=== PATIENT | male | born 1955 | race Caucasian/White ===

== ENCOUNTER → 2020-10-29 13:39 | Outpatient (CLI) | payer MEDICARE, SELFPAY ==
--- NOTE | 2020-10-29 13:43 | DI.RAD.S_ITS ---
PROCEDURE: XR FOOT LT MIN 3V INDICATIONS: l foot pain TECHNIQUE: 4 views of the foot were acquired. COMPARISON: None. FINDINGS: There are no fractures or dislocation of the foot. There is soft tissue swelling adjacent to the lateral malleolus of the ankle. On the frontal view of the foot there is a small calcific fragment. No tibiotalar joint effusion. IMPRESSION: Likely nondisplaced avulsion fracture of the distal aspect of the lateral malleolus on limits of this foot series. There is adjacent soft tissue swelling. No acute fracture or dislocation of the foot. Dictated by: Nino Whipple D.O. on 10/29/2020 at 14:02 Approved by: Nino Whipple D.O. on 10/29/2020 at 14:04
== END ==
PROVIDERS: Referring Provider Physician Assistant; Visit Provider Physician Assistant
DX: M79.672 Pain in left foot (principal); M79.89 Other specified soft tissue disorders
CPT/HCPCS: 73630

== ENCOUNTER → 2022-01-11 10:37 | Outpatient (CLI) | payer MEDICARE, SELFPAY ==
--- NOTE | 2022-01-11 | DI.US.S_ITS ---
PROCEDURE: US ABD AORTA ANEURYSM SCREEN INDICATIONS: SCREEN TECHNIQUE: Real time scanning was performed of the aorta and iliac arteries, with image documentation. COMPARISON: None. FINDINGS: Aorta: Proximal aortic diameter measures 2.5 cm. Mid-aorta measures 1.6 cm. Distal aortic diameter is 1.7 cm. Iliac arteries: Right common iliac artery measures 0.7 cm. Left common iliac artery measures 0 point cm. IMPRESSION: No sonographic evidence of aneurysmal dilatation. Consider 5 year follow-up as clinically warranted. Dictated by: Joseph Kumar M.D. on 01/11/2022 at 13:14 Approved by: Joseph Kumar M.D. on 01/11/2022 at 13:22
== END ==
PROVIDERS: PCP Internal Medicine; Referring Provider Internal Medicine; Visit Provider Internal Medicine
DX: Z13.6 Encounter for screening for cardiovascular disorders (principal)
CPT/HCPCS: 76706

== ENCOUNTER → 2022-04-13 13:52 | Outpatient (CLI) | payer MEDICARE, SELFPAY ==
--- NOTE | 2022-04-13 | DI.MRI.S_ITS ---
PROCEDURE: MR KNEE RT WO CON INDICATIONS: Pain in right knee TECHNIQUE: Noncontrast sagittal PD fast spin echo and T2 fast spin echo with fat saturation, sagittal 3-D FLASH with fat saturation; coronal T1 spin echo and PD fast spin echo with fat saturation, and axial PD fast spin echo with fat saturation through the knee. COMPARISON: None. FINDINGS: Image quality: Excellent. Anterior Cruciate Ligament: There is complete tearing of the anterior cruciate ligament, which is likely chronic.. Posterior Cruciate Ligament: Intact. Medial Collateral Ligament: Intact. Lateral Collateral Ligament: Intact. Medial Meniscus: There is complex degenerative tearing and maceration of the medial meniscus. Lateral Meniscus: Linear horizontal hyperintense signal is seen in the body of the lateral meniscus that may extend to the free edge margin. Medial and Lateral Tendons: The semimembranosus tendon insertions and meniscocapsular junction appear intact. Visualized portions of the pes anserinus tendons appear normal. No abnormal bursal fluid. The long and short heads of the biceps femoris tendon appear intact. The popliteus tendon demonstrates insertional tendinosis. No signs of posterolateral corner injury. Iliotibial band appears normal. Anterior Structures: The quadriceps and patellar tendons appear intact. Small nonedematous enthesophyte at the distal quadriceps insertion. No patellar subluxation. No femoral trochlear dysplasia or ventral trochlear prominence. No edema in the infrapatellar fat pad. Bones: No acute trabecular bone injury or fracture. Medial Femorotibial Cartilage: Full-thickness cartilage loss is seen throughout the weight-bearing portion of the medial femorotibial compartment with subchondral edema, subchondral cystic changes, and marginal osteophyte formation. Lateral Femorotibial Cartilage: Mild surface irregularity is seen in the central weight-bearing portion of the lateral femoral condyle and lateral tibial plateau. Small marginal osteophytes are present. Patellofemoral Cartilage: Partial-thickness cartilage irregularity is seen at the medial patellar facet. Soft Tissues: A small joint effusion is present. Small medial popliteal cyst. The musculature surrounding the knee is normal in bulk. IMPRESSION: 1. Complex degenerative tearing and maceration involving the body and posterior horn of the medial meniscus with only a small amount of residual meniscal tissue. 2. Suspected horizontal tearing of the body of the lateral meniscus extending to the free edge margin. 3. Full-thickness cartilage loss throughout the weight-bearing portion of the medial femorotibial compartment with subchondral edema and subchondral cystic changes. 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 4. Small joint effusion. Small medial popliteal cyst. Dictated by: Woody Overton M.D. on 04/13/2022 at 16:11 Approved by: Woody Overton M.D. on 04/13/2022 at 16:19
== END ==
PROVIDERS: PCP Internal Medicine; Referring Provider Internal Medicine; Visit Provider Student in an Organized Health Care Education/Training Program
DX: S83.231A Complex tear of medial meniscus, current injury, right knee, initial encounter (principal); M94.261 Chondromalacia, right knee; M25.461 Effusion, right knee; M71.21 Synovial cyst of popliteal space [Baker], right knee; M25.561 Pain in right knee
CPT/HCPCS: 73721

== ENCOUNTER 2022-12-09 22:09 | Emergency (ER) | payer MEDICARE, SELFPAY ==
[2022-12-09 22:13] VITALS: BP 176/84; PULSE 89; RESP 16; TEMP 37; O2SAT 96; BMI 25.0
[2022-12-09] MEDS: TET,DIPH,PERTUSS(ACELL),VAC/PF 0.5 ML SYRINGE IM (22:57)
--- NOTE | 2022-12-09 23:20 | ED.SKABFB ---
HPI - Skin/Abscess/Foreign Bdy General Chief complaint: Skin/Abscess/Foreign Body Stated complaint: left hand/thumb cut Time Seen by Provider: 12/09/22 22:51 Source: patient Mode of arrival: Ambulatory History of Present Illness HPI narrative: Patient is a 67-year-old male who is here for evaluation of a cut to his left thumb. He states he was sharpening a knife when he cut his thumb. He is in need of a tetanus shot. He states that it goes down next to his thumbnail but he does not injuries nail. He covered with a bandage and came to the emergency department. Related Data Home Medications Medication Instructions Recorded Confirmed No Known Home Medications 10/29/20 08/07/22 Allergies Allergy/AdvReac Type Severity Reaction Status Date / Time No Known Drug Allergies Allergy Verified 12/09/22 22:19 Review of Systems Integumentary/Breasts Skin/Breast: Reports system reviewed and no additional complaints, except as documented Neurologic Neurologic: Reports system reviewed and no additional complaints, except as documented Patient History Social History Smoking Status: Never smoker Smoking Status: Never smoker Exam Initial Vital Signs Initial Vital Signs: Vital Signs Temperature 98.6 F 12/09/22 22:13 Pulse Rate 89 12/09/22 22:13 Respiratory Rate 16 12/09/22 22:13 Blood Pressure 176/84 H 12/09/22 22:13 Pulse Oximetry 96 12/09/22 22:13 Oxygen Delivery Method Room Air 12/09/22 22:13 Skin Other: Total of 1 cm laceration to the tip of the left thumb that goes down along the radial aspect of the thumb nail. It does not involve the thumbnail. Neuro Sensory Exam: no sensory deficits noted Extrem Other: No injury to the IP joint of left thumb. Procedures Laceration Repair Laceration 1: Site: other (Thumb) Side (If applicable): left Size (cm): 1 Description: linear Depth: simple, single layer Skin layer closed with: dermabond Course Orders Ordered: Discontinued Medications Diphtheria/Tetanus/Acell Pertussis (Tet,Diph,Pertuss(Acell),Vac/Pf 0.5 Ml Syringe) 0.5 ml IM .ONCE ONE Stop: 12/09/22 22:21 Last Admin: 12/09/22 22:57 Dose: 0.5 ml Documented By: PAIGE Vital Signs Vital signs: Vital Signs - 8 hr 12/09/22 22:13 Temperature 98.6 F Pulse Rate 89 Respiratory Rate 16 Blood Pressure 176/84 H Pulse Oximetry 96 Oxygen Delivery Method Room Air MDM - Skin/Abscess/Foreign Bdy MDM Narrative Medical decision making narrative: Tetanus was updated. Low suspicion for bony injury so will hold on any radiologic studies. Skin was closed with Dermabond. There was no nail involvement. Patient was given care instructions return precautions. He expressed understanding and agreement. Discharge Plan Departure Patient Disposition: Home Clinical Impression: Laceration of thumb Instructions: DI for Laceration Repair-Skin Glue Activity Restrictions/Additional Instructions: I do recommend that you try to keep the area covered with a bandage. Contact your primary doctor for a follow-up. Return to the emergency department for any new or worsening symptoms. Prescriptions: No Action No Known Home Medications Referrals: Jerome Potter MD [Primary Care Provider] - Stand Alone Forms: Patient Portal/API
== END 2022-12-09 23:37 | disposition home or self-care (01) ==
PROVIDERS: Emergency Provider Emergency Medicine; PCP Internal Medicine
DX: S61.012A Laceration without foreign body of left thumb without damage to nail, initial encounter (principal); W26.0XXA Contact with knife, initial encounter; Z23 Encounter for immunization
CPT/HCPCS: 12001; 90471; 99283; 90715

== ENCOUNTER → 2024-02-10 07:30 | Outpatient (CLI) | payer MEDICARE, SELFPAY | PROVIDERS: PCP Internal Medicine; Visit Provider Physician Assistant | DX: B99.9 Unspecified infectious disease (principal) | CPT/HCPCS: 87070; 87075; 87077; 87147; 87205 ==

== ENCOUNTER → 2025-03-30 13:47 | Outpatient (CLI) | payer MEDICARE, SELFPAY ==
--- NOTE | 2025-03-30 13:50 | DI.US.S_ITS ---
PROCEDURE: US CAROTID DOPPLER BI INDICATIONS: left carotid artery stenosis TECHNIQUE: Color and pulse Doppler interrogation was performed of both carotid systems, with image documentation and velocity measurements. COMPARISON: None. FINDINGS: Stenosis calculations are based on SRU (Society of [employer] in Ultras[employer]) criteria. Right side: Brachial blood pressure: 109/61 mm Hg. Common carotid artery peak systolic velocity: 86 cm/sec. Internal carotid artery peak systolic velocity: 125 cm/sec. Internal carotid artery end diastolic velocity: 34 cm/sec. External carotid artery peak systolic velocity: 109 cm/sec. ICA/CCA peak systolic ratio: 1.5 . Resendez scale imaging description: Moderate atherosclerotic plaque at the proximal internal carotid artery Percent internal carotid artery stenosis: 50-69 percent . Vertebral artery: Flow direction is antegrade. Left side: Brachial blood pressure: 110/62 mm Hg. Common carotid artery peak systolic velocity: 83 cm/sec. Internal carotid artery peak systolic velocity: 156 cm/sec. Internal carotid artery end diastolic velocity: 65 cm/sec. External carotid artery peak systolic velocity: 162 cm/sec. ICA/CCA peak systolic ratio: 1.9 . Resendez scale imaging description: Moderate atherosclerotic plaque at the carotid bulb. Percent internal carotid artery stenosis: 50-69 percent . Vertebral artery: Flow direction is antegrade. IMPRESSION: 1. In the right carotid artery, there is 50-69 percent stenosis based on peak systolic velocity criteria. 2. In the left carotid artery, there is 50-69 percent stenosis based on peak systolic velocity criteria. 3. Antegrade vertebral arteries. Dictated by: Ricardo Crespo M.D. on 03/31/2025 at 14:44 Approved by: Ricardo Crespo M.D. on 03/31/2025 at 14:45
== END ==
PROVIDERS: PCP Internal Medicine; Referring Provider Internal Medicine; Visit Provider Internal Medicine
DX: I65.23 Occlusion and stenosis of bilateral carotid arteries (principal)
CPT/HCPCS: 93880